=== PATIENT | female | born 1990 | race Caucasian/White ===

== ENCOUNTER 2018-06-29 05:31 | Day surgery (SDC) | payer MEDICAID ==
[~2018-06-29 05:31] MED LIST: Buffered Lidocaine 1% SYRIN* 1 ML/SYRINGE INTRADERM ONE
[2018-06-29] MEDS ORDERED: Lactated Ringers 1000 ML Bag* 1,000 ML IV SCH (06:00)
[2018-06-29] MEDS ORDERED: Dexamethasone IV* 4 MG/ML 1 ML (4 MG) IV SLOW PU ONE (06:00)
[2018-06-29] MEDS ORDERED: Famotidine IV* 10 MG/ML 2 ML (20 mg) IV ONE (06:00)
[2018-06-29] MEDS ORDERED: Clindamycin 900 MG/D5W BAG(*) 900 MG/50 ML BAG IVPB ONE ×2 (06:03)
[2018-06-29] MEDS ORDERED: Famotidine IV* 10 MG/ML 2 ML (20 mg) ONE ×2 (06:03)
[2018-06-29] MEDS ORDERED: Buffered Lidocaine 1% SYRIN* 1 ML/SYRINGE INTRADERM ONE ×2 (06:03)
[2018-06-29] MEDS ORDERED: Dexamethasone IV* 4 MG/ML 1 ML (4 MG) ONE ×2 (06:03)
[2018-06-29] MEDS ORDERED: Propofol* 10 MG/ML 20 ML BTL ONE ×2 (07:11)
[2018-06-29] MEDS ORDERED: Ondansetron INJ* 2 MG/ML VIAL ONE ×2 (07:11)
[2018-06-29] MEDS ORDERED: Midazolam* 1 MG/ML 5 ML VIAL (5 MG) ONE ×2 (07:11)
[2018-06-29] MEDS ORDERED: Ketorolac INJ* 30 MG/ML 1 ML VIAL ONE ×2 (07:11)
[2018-06-29] MEDS ORDERED: fentaNYL* 50 MCG/ML 2 ML VIAL (100 MCG VIAL) ONE ×4 (07:11→09:28)
[2018-06-29] MEDS ORDERED: KETAMINE HCL* 50 MG/ML 10 ML VIAL ONE ×2 (07:11)
[2018-06-29] MEDS ORDERED: ROPIVACAINE 5 MG/ML 30 ML BTL (0.5%) ONE ×2 (07:15)
[2018-06-29] MEDS ORDERED: Bupivacaine 0.25% SDV PF* 10 ML VIAL INJ ONE ×2 (07:30)
[2018-06-29] MEDS ORDERED: DiMENhydriNATE IV* 50 MG/ML VIAL IV PUSH PRN (09:22)
[2018-06-29] MEDS ORDERED: HYDROmorphone INJ1* 1 MG/ML SYRINGE IV PRN (09:22)
[2018-06-29] MEDS ORDERED: fentaNYL* 50 MCG/ML 2 ML VIAL (100 MCG VIAL) IV PRN (09:22)
[2018-06-29] MEDS ORDERED: Naloxone* 0.4 MG/ML 1 ML VIAL IV PRN (09:22)
[2018-06-29] MEDS ORDERED: Ondansetron INJ* 2 MG/ML VIAL IV PRN (09:22)
[2018-06-29] MEDS ORDERED: HYDROmorphone INJ1* 1 MG/ML SYRINGE ONE (09:28)
[2018-06-29] MEDS ORDERED: oxyCODONE/Acetamin 5/325 MG* TAB ONE ×4 (09:28→09:55)
[2018-06-29] MEDS: oxyCODONE/Acetamin 5/325 MG* TAB PO PRN ×2 (09:33→09:56)
--- NOTE | 2018-06-29 09:46 | OP ---
Operative Report - Blank - Operative Report Date of Operation: 06/29/18 Note: PATIENT: Debby Iverson DATE OF : 1990 DATE OF SURGERY: 06/29/2018 SURGEON: Jimmy Segal MD [employer] COUNSELOR: INDRA Bryant, whos assistance was necessary for positioning, retraction, help with instrumentation, and closure. ANESTHESIOLOGIST: Dr. 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 Right medial displacement calcaneal osteotomy. 2. Right foot Kidner procedure with excision of accessory navicular with advancement of the posterior tibial tendon. ANESTHESIA: General LMA IMPLANTS: Arthrex Fibertak, Arthrex 6.7mm cannulated screws x2 TOURNIQUET TIME: Anout one hour, with a well-padded thigh tourniquet at 250 mmHg SPECIMENS: none ESTIMATED BLOOD LOSS: Minimal COMPLICATIONS: none STATUS: Stable from the operating room to the recovery room and then home. INDICATIONS FOR PROCEDURE: Debby has a painful left accessory navicular bone and valgus hindfoot and has tried extensive nonoperative treatment without benefit. Both operative and non operative treatment alternatives were reviewed. Further, the nature and risks of surgery were reviewed in careful detail, in the office as well as the pre-operative holding area. Our discussions regarding the risks of surgery included, but were not limited to, infection, wound problems, nerve injury, neuroma, RSD, persistent symptoms, blood clot, failure of the surgery, tendon rupture, persistent symptoms, nonunion, malunion, fracture, and even the remote chance of catastrophic complication. DESCRIPTION OF PROCEDURE: The patient was seen in the preoperative holding unit and informed written consent was obtained. The appropriate extremity was marked. The patient was then brought to the operating room and carefully positioned on the operating room table. Anesthesia was induced. All bony prominences were padded with great care. A well-padded thigh tourniquet was placed. A chlorhexidine based pre- scrub was performed followed by a chloraprep prep and drape in standard sterile fashion. A surgical safety pause was then conducted in which we confirmed the appropriate patient, extremity, planned procedure, availability of equipment, indication and administration of prophylactic antibiotics, and DVT prophylaxis in the form of a compression boot on the non-surgical extremity. I began with an Esmarch exsanguination of the limb and inflation of the tourniquet. I made an oblique incision over the lateral aspect of the posterior calcaneus. Careful blunt dissection was used to get down to the level of the calcaneus. The lateral calcaneus was then exposed and Hohmann retractors were used proximally and distally to protect the soft tissue structures. A small oscillating saw blade was used to start the calcaneal osteotomy. Fluoroscopy was used to confirm the placement of the osteotomy and trajectory. The osteotomy was completed with the oscillating saw and then osteotomes. The osteotomy site was distracted and then I manually performed a medial displacement of the posterior aspect of the osteotomy. Guidewires for 6.7 mm cannulated screws were placed across the osteotomy. About 10 mm of displacement was measured. Fluoroscopy was used to confirm the trajectory of the guidewires. An incision was made over the guidewires, the length of the wires was measured, and two partially-threaded 6.7 mm cannulated screw were placed. This provided excellent compression at the osteotomy site. Fluoroscopy was then again checked. The now-prominent lateral edge of the osteotomy site was contoured down using a Rongeur and bone tamp. The wound was copiously irrigated and closed in a layered fashion. A medial longitudinal incision was then made centered at the medial prominence of the navicular. Careful blunt dissection was taken down to the layer of the posterior tibial tendon and periosteum. This layer was defined. An incision was made at the superior edge of the posterior tibial tendon and this was reflected in a subperiosteal manner plantarly. The periosteum superiorly was also reflected in a subperiosteal manner so as to expose the entire medial navicular. The accessory navicular was apparent that fluoroscopy was also used to confirm. A small straight osteotome was then used to excise the accessory navicular as well as the bony prominence medially. The edges were smoothed with a Rongeur and then the exposed cancellous bed was smooth with a rasp. No prominence was felt directly and also the soft tissues were provisionally tacked closed, and no prominence was felt on the skin. Fluoroscopy was then used to confirm adequate resection. Copious irrigation was then performed. An Arthrex fibertak was then placed under fluoroscopic guidance into the navicular. This had excellent purchase and I was able to lift the foot off the bed by pulling on the sutures. These sutures were then placed through the posterior tibial tendon in a horizontal mattress fashion so as to advance the posterior tibial tendon to the new medial edge of the navicular bone. A #1 Vicryl suture was then used to perform a [id number] repair of the periosteum and posterior tibial tendon. At this point, we irrigated copiously and then closed in layers meticulously utilizing 3-0 Monocryl and 3-0 Nylon for the skin. A sterile dressing was then applied followed by a splint with the ankle in neutral position. The patient was then awakened from anesthesia and transferred to the recovery room in stable condition. There were no complications. All needle and sponge counts were correct at the end of the case. ATTESTATION: I attest I was present and scrubbed and performed the critical portions of the procedure myself. POSTOPERATIVE PLAN: Follow up will be in 2 weeks for likely suture removal and transition to a [id number] short leg cast. We will plan on 6 weeks of [id number] and immobilization. She will be on Xarelto for 6 weeks postop.
[2018-06-29 10:20] VITALS: BP 104/68
== END 2018-06-29 10:23 | disposition home or self-care (01) ==
LOC: OR 05:31
PROVIDERS: ATTEND Orthopaedic Surgery
DX: M21.071 Valgus deformity, not elsewhere classified, right ankle (principal); M76.821 Posterior tibial tendinitis, right leg; Z72.0 Tobacco use; G89.18 Other acute postprocedural pain
CPT/HCPCS: 76000; 81025; A9270-GY; C1713; J1100; J1170; J1885; J2250; J2405; J2704; J2795; J3010; J3490